=== PATIENT | female | born 1940 | race Caucasian/White ===

== ENCOUNTER → 2020-01-02 | Outpatient (CLI) | payer OTHER | LOC: SJCVC 14:20 | DX: E78.00 Pure hypercholesterolemia, unspecified (principal); I10 Essential (primary) hypertension; Z82.49 Family history of ischemic heart disease and other diseases of the circulatory system; Z90.09 Acquired absence of other part of head and neck; Z79.899 Other long term (current) drug therapy ==

== ENCOUNTER 2020-04-30 01:57 | Emergency (ER) | payer OTHER ==
[~2020-04-30] VITALS: Ht 160 cm; Wt 69.0 kg
[~2020-04-30 01:57] MED LIST: LEVOXYL112 MCG PO; PROTONIX40 M1 PO; ZOFRAN ODT4 MG PO
[2020-04-30 02:22] LABS: ABSOLUTE NEUTROPHILS 8.6 thou/uL (1.4-8.2); BASOPHILS 0.2 % (0.0-2.0); HEMATOCRIT 37.3 % (37.0-47.0); HEMOGLOBIN 12.6 gm/dL (12.0-15.0); LYMPHOCYTES 8.5 % (24.0-44.0); MCH 32.2 pg (26.0-34.0); MCHC 33.8 g/dL (28.0-37.0); MCV 95.5 fL (80.0-100.0); MONOCYTES 4.4 % (1.0-8.0); PLATELET COUNT 182 thou/uL (150-400); POLYS 86.9 % (36.0-66.0); RDW 13.1 % (10.5-14.5); WBC 9.8 thou/uL (4.0-11.0)
[2020-04-30 02:42] LABS: ALBUMIN 3.2 g/dL (3.4-5.0); BUN 19 mg/dL (7-18); CALCIUM 8.2 mg/dL (8.5-10.1); CO2 25 mmol/L (21-32); CREATININE 0.8 mg/dL (0.6-1.0); GLUCOSE 197 mg/dL (74-106); LIPASE 78 U/L (73-393); SGOT 28 U/L (15-37); SGPT 39 U/L (30-65); TOTAL BILIRUBIN 0.3 mg/dL (0.2-1.0); TOTAL PROTEIN 6.7 g/dL (6.4-8.2); TROPONIN-I <0.06 ng/mL (<0.06)
[2020-04-30 02:53] LABS: ANION GAP 9 mmol/L (7-16); CHLORIDE 90 mmol/L (98-107); POTASSIUM 3.6 mmol/L (3.5-5.1); SODIUM 124 mmol/L (136-145)
[2020-04-30 03:43] LABS: URINE BILIRUBIN NEGATIVE (Negative); URINE BLOOD TRACE (Negative); URINE CLARITY CLEAR; URINE COLOR YELLOW; URINE GLUCOSE-RANDOM* NEGATIVE (Negative); URINE KETONES TRACE (Negative); URINE LEUKOCYTES-REFLEX NEGATIVE (Negative); URINE NITRITE-REFLEX NEGATIVE (Negative); URINE PROTEIN (DIPSTICK) TRACE (Negative); URINE SPECIFIC GRAVITY 1.025 (1.005-1.035); URINE UROBILINOGEN 0.2 E.U./dl (0.2-1.0)
[2020-04-30 04:44] VITALS: BP 155/62
[2020-04-30] MEDS ORDERED: ONDANSETRON ODT8 MG PO (04:46)
--- NOTE | 2020-04-30 08:49 | EKG ---
[facility] [place] [address] ELECTROCARDIOGRAM REPORT Name: CINTHIA CANSECO Room #: DEP [facility]#: [id number] Admission: 04/30/20 Attend Phys: Discharge: 04/30/20 Date of : 38 Report #: [id number] THIS REPORT FOR: cc: Erwin Brambila MD, Brian G. MD Lundgren,Adán Nugent MD [facility] ~ THIS REPORT FOR: //name// [facility] ED Test Date: 2020-04-30 Test Time: 02:33:53 Pat Name: CINTHIA CANSECO Department: Room: Gender: F Elder Counselor: NO : 1940 Requested By: Glenn Edwards Order Number: [id number] MD: Adán Dhaliwal Measurements Intervals [place] Rate: 93 P: 42 MD: 128 QRS: 37 QRSD: 100 T: 14 QT: 360 QTc: 448 Interpretive Statements Sinus rhythm Normal tracing Compared to ECG 04/28/2020 13:06:05 No significant changes Electronically Signed On 04-30-2020 8:48:21 CDT by Adán Dhaliwal [email or web address] <ELECTRONICALLY SIGNED> By: Adán Dhaliwal MD, FAC 04/30/20 [id number] Adán Dhaliwal MD, [facility] /EPI
== END 2020-04-30 05:07 | disposition home or self-care (01) ==
LOC: ER 01:57
PROVIDERS: Emergency Medicine
DX: R11.2 Nausea with vomiting, unspecified (principal); E87.1 Hypo-osmolality and hyponatremia; E86.0 Dehydration; R51 Headache; R42 Dizziness and giddiness; R63.0 Anorexia; E78.00 Pure hypercholesterolemia, unspecified; E03.9 Hypothyroidism, unspecified; Z98.51 Tubal ligation status; Z79.899 Other long term (current) drug therapy

== ENCOUNTER → 2021-01-17 | Outpatient (CLI) | payer OTHER ==
[~2021-01-17] MED LIST changes: +ONDANSETRON ODT8 MG PO
== END ==
LOC: SJCVC 09:29
PROVIDERS: ATTEND Internal Medicine Cardiovascular Disease
DX: R07.89 Other chest pain (principal); I10 Essential (primary) hypertension; E78.00 Pure hypercholesterolemia, unspecified; I70.1 Atherosclerosis of renal artery; R06.02 Shortness of breath; Z79.82 Long term (current) use of aspirin; Z79.899 Other long term (current) drug therapy; Z72.89 Other problems related to lifestyle

== ENCOUNTER → 2021-03-20 | Outpatient (CLI) | payer OTHER | LOC: SJCVCIMAG 08:26 | PROVIDERS: ATTEND Internal Medicine Cardiovascular Disease | DX: Z13.6 Encounter for screening for cardiovascular disorders (principal); I10 Essential (primary) hypertension; K80.20 Calculus of gallbladder without cholecystitis without obstruction; I70.1 Atherosclerosis of renal artery; Z79.82 Long term (current) use of aspirin; Z79.899 Other long term (current) drug therapy ==